=== PATIENT | female | born 1990 | race Two or more races ===

== ENCOUNTER 2017-07-11 18:02 | Emergency (ER) | payer SELFPAY ==
[~2017-07-11] VITALS: Ht 162.6 cm; Wt 65.0 kg
[2017-07-11 18:12] VITALS: BP 118/78
== END 2017-07-11 18:21 | disposition left against medical advice (07) ==
LOC: ER 18:20
DX: O26.891 Other specified pregnancy related conditions, first trimester (principal); R10.9 Unspecified abdominal pain; Z3A.12 12 weeks gestation of pregnancy
CPT/HCPCS: 99283